=== PATIENT | male | born 1945 | race Caucasian/White ===

== ENCOUNTER → 2017-02-17 | Outpatient (CLI) | payer OTHER ==
[~2017-02-17] MED LIST: ACET-1311 PO; ALFU10TA2 PO; ATOR10TA82 PO; CHOL2000 PO; CYAN500T13 PO; DUTA0.5C PO; NAPR1TAB9 PO; NITR1CAP33 PO; PANT40TA PO
== END | disposition home or self-care (01) ==
LOC: C.LAB 08:56
PROVIDERS: ATTEND Urology
DX: N39.0 Urinary tract infection, site not specified (principal); N41.0 Acute prostatitis